=== PATIENT | male | born 1985 | race Hispanic/Latino ===

== ENCOUNTER 2021-07-23 13:05 | Emergency (ER) | payer OTHER ==
[~2021-07-23] VITALS: Ht 172.7 cm; Wt 75.7 kg
[2021-07-23] MEDS ORDERED: CYCLOBENZAPRINE5 MG PO (14:40)
[2021-07-23] MEDS ORDERED: NAPROSYN500 MG PO (14:40)
== END 2021-07-23 15:10 | disposition home or self-care (01) ==
LOC: FSED 13:13
DX: S02.2XXA Fracture of nasal bones, initial encounter for closed fracture (principal); S00.83XA Contusion of other part of head, initial encounter; S30.1XXA Contusion of abdominal wall, initial encounter; Y04.8XXA Assault by other bodily force, initial encounter; Y92.89 Other specified places as the place of occurrence of the external cause
CPT/HCPCS: 70450; 70486; 71045; 74176; 99283